=== PATIENT | female | born 1970 | race African-American/Black ===

== ENCOUNTER 2017-02-13 13:37 | Emergency (ER) | payer MEDICAID ==
[~2017-02-13] VITALS: Ht 165.1 cm; Wt 88.0 kg
[2017-02-13 14:50] LABS: HEMATOCRIT. 35.6 % (36.0-48.0); HEMOGLOBIN. 12.1 g/dL (12.0-16.0); MEAN CORPUSCULAR HEMOGLOBIN 32.9 pg (28.0-32.0); MEAN CORPUSCULAR VOLUME 96.8 fL (81.0-99.0); MEAN PLATELET VOLUME 8.3 fl (7.4-10.4); PLATELET 130 x1000/uL (130-400); RED BLOOD CELL COUNT 3.68 mill/uL (4.2-5.4); RED CELL DISTRIBUTION WIDTH 14.2 % (11.6-14.6)
[2017-02-13 15:05] LABS: CARBON DIOXIDE 32 mEq/L (21-32); CHLORIDE 103 mEq/L (98-107)
[2017-02-13] MEDS ORDERED: IBUPROFEN 600MG TABLET PO ONE (16:00)
[2017-02-13] MEDS ORDERED: TRAMADOL 50MG TABLET PO ONE (16:00)
[2017-02-13 16:42] LABS: PLATELET ESTIMATE NORMAL
[2017-02-13 17:12] VITALS: BP 139/72
== END 2017-02-13 17:31 | disposition home or self-care (01) ==
LOC: ER 14:38
DX: R06.02 Shortness of breath (principal); D72.819 Decreased white blood cell count, unspecified; Z88.1 Allergy status to other antibiotic agents; Z87.891 Personal history of nicotine dependence
CPT/HCPCS: 36415; 71020; 80048; 81025; 83880; 85025; 99285

== ENCOUNTER 2019-04-08 13:19 | Emergency (ER) | payer SELFPAY ==
[~2019-04-08] VITALS: Ht 167.6 cm; Wt 92.0 kg
[2019-04-08] MEDS ORDERED: KETOROLAC 30MG/ML VIAL IV STA (14:20)
[2019-04-08] MEDS ORDERED: SODIUM CHLORIDE 0.9% 1,000 ML IV ONE (14:20)
[2019-04-08 14:37] LABS: BASOPHILS % 1.1 % (0.0-2.0); EOSINOPHILS % 1.7 % (0.0-5.0); HEMOGLOBIN. 12.4 g/dL (12.0-16.0); LYMPHOCYTES % 48.1 % (20.0-50.0); MEAN CORPUSCULAR HEMOGLOBIN 34.3 pg (28.0-32.0); MEAN CORPUSCULAR VOLUME 99.6 fL (81.0-99.0); MEAN PLATELET VOLUME 8.4 fl (7.4-10.4); MONOCYTES % 10.4 % (2.0-8.0); NEUTROPHILS % 38.7 % (40.0-76.0); PLATELET 116 x1000/uL (130-400); RED BLOOD CELL COUNT 3.61 mill/uL (4.2-5.4); RED CELL DISTRIBUTION WIDTH 13.7 % (11.6-14.6)
[2019-04-08 14:43] LABS: CHLORIDE 110 mEq/L (98-107)
[2019-04-08 14:44] LABS: HCG SCREEN NEGATIVE
[2019-04-08 14:48] LABS: D-DIMER < 0.19 mg/L FEU (<0.50); INR 1.1; PARTIAL THROMBOPLASTIN TIME 28.1 sec (23.4-31.0); PROTHROMBIN TIME 10.8 sec (9.6-11.0)
[2019-04-08] MEDS ORDERED: POTASSIUM CHLORIDE 20MEQ TABLET SR PO ONE (15:00)
[2019-04-08] MEDS ORDERED: TRAMADOL 50MG TABLET PO ONE (16:15)
[2019-04-08 19:03] VITALS: BP 156/88
== END 2019-04-08 19:09 | disposition home or self-care (01) ==
LOC: ER 13:19
DX: R07.89 Other chest pain (principal); E87.6 Hypokalemia; M79.602 Pain in left arm; F12.10 Cannabis abuse, uncomplicated; F17.200 Nicotine dependence, unspecified, uncomplicated; Z88.1 Allergy status to other antibiotic agents; X50.1XXA Overexertion from prolonged static or awkward postures, initial encounter; Y93.89 Activity, other specified; Y92.89 Other specified places as the place of occurrence of the external cause; Y99.8 Other external cause status
CPT/HCPCS: 36415; 71045; 80053; 83880; 84484; 84703; 85025; 85379; 85610; 85730; 93005; 96374; 99284; J1885; J7030

== ENCOUNTER 2019-06-09 12:18 | Emergency (ER) | payer SELFPAY ==
[~2019-06-09] VITALS: Ht 167.6 cm; Wt 85.0 kg
[2019-06-09] MEDS ORDERED: ONDANSETRON HCL 4MG/2ML INJ IV STA (13:16)
[2019-06-09] MEDS ORDERED: KETOROLAC 30MG/ML VIAL IV STA (13:16)
[2019-06-09] MEDS ORDERED: SODIUM CHLORIDE 0.9% 1,000 ML IV ONE (13:16)
[2019-06-09 14:04] LABS: EOSINOPHILS % 1.1 % (0.0-5.0); HEMATOCRIT. 40.3 % (36.0-48.0); HEMOGLOBIN. 13.6 g/dL (12.0-16.0); MEAN CORPUSCULAR HEMOGLOBIN 33.2 pg (28.0-32.0); MEAN CORPUSCULAR VOLUME 98.4 fL (81.0-99.0); MEAN PLATELET VOLUME 8.2 fl (7.4-10.4); MONOCYTES % 9.1 % (2.0-8.0); NEUTROPHILS % 28.8 % (40.0-76.0); PLATELET 134 x1000/uL (130-400); RED CELL DISTRIBUTION WIDTH 12.4 % (11.6-14.6)
[2019-06-09 14:11] LABS: CHLORIDE 108 mEq/L (98-107)
[2019-06-09 14:16] LABS: ETHANOL BLOOD < 10 mg/dL
[2019-06-09 14:59] LABS: *AMPHETAMINES SCREEN URINE NEGATIVE (NEGATIVE); *BARBITURATES SCREEN URINE NEGATIVE (NEGATIVE)
[2019-06-09 15:01] LABS: *BENZODIAZEPINES SCREEN URINE NEGATIVE (NEGATIVE); *COCAINE SCREEN URINE NEGATIVE (NEGATIVE); METHADONE URINE SCREEN NEGATIVE (NEGATIVE); OPIATES URINE SCREEN NEGATIVE (NEGATIVE); PHENCYCLIDINE URINE SCREEN NEGATIVE (NEGATIVE)
[2019-06-09 15:02] LABS: CANNABINOID URINE SCREEN NEGATIVE (NEGATIVE)
[2019-06-09] MEDS ORDERED: POTASSIUM CHLORIDE 20MEQ TABLET SR PO ONE (16:00)
[2019-06-09 17:17] VITALS: BP 151/73
== END 2019-06-09 17:58 | disposition home or self-care (01) ==
LOC: ER 15:19
DX: R51 Headache (principal); R07.89 Other chest pain
CPT/HCPCS: 36415; 70450; 71045; 80053; 80305; 80320; 81025; 84484; 85025; 93005; 96374; 96375; 99284; J1885; J2405; J7030; G0480

== ENCOUNTER 2020-04-29 23:20 | Emergency (ER) | payer SELFPAY ==
[~2020-04-29] VITALS: Ht 172.7 cm; Wt 108.0 kg
[2020-04-30] MEDS: LORAZEPAM 2MG/ML CPJ IM PRN (01:41)
[2020-04-30 03:28] VITALS: BP 165/88
== END 2020-04-30 03:29 | disposition home or self-care (01) ==
LOC: ER 23:20
DX: F41.9 Anxiety disorder, unspecified (principal); I49.9 Cardiac arrhythmia, unspecified; Z88.1 Allergy status to other antibiotic agents
CPT/HCPCS: 93005; 96372; 99283; J2060

== ENCOUNTER 2020-06-07 10:53 | Emergency (ER) | payer MEDICAID ==
[~2020-06-07] VITALS: Ht 160 cm; Wt 82.0 kg
[2020-06-07 12:12] LABS: EOSINOPHILS % 1.3 % (0.0-5.0); HEMATOCRIT. 38.1 % (36.0-48.0); HEMOGLOBIN. 12.8 g/dL (12.0-16.0); LYMPHOCYTES % 45.4 % (20.0-50.0); MEAN CORPUSCULAR HEMOGLOBIN 32.7 pg (28.0-32.0); MEAN CORPUSCULAR VOLUME 97.2 fL (81.0-99.0); MEAN PLATELET VOLUME 8.7 fl (7.4-10.4); MONOCYTES % 8.3 % (2.0-8.0); PLATELET 139 x1000/uL (130-400); RED BLOOD CELL COUNT 3.92 mill/uL (4.2-5.4); RED CELL DISTRIBUTION WIDTH 13.7 % (11.6-14.6)
[2020-06-07 12:20] LABS: CHLORIDE 107 mEq/L (98-107)
[2020-06-07] MEDS ORDERED: ACETAMINOPHEN 325MG TABLET PO STA (12:29)
[2020-06-07] MEDS ORDERED: SODIUM CHLORIDE 0.9% 1,000 ML IV ONE (12:30)
[2020-06-07] MEDS ORDERED: PROCHLORPERAZINE 10MG/2ML VIAL IV PRN (12:30)
[2020-06-07] MEDS ORDERED: DIPHENHYDRAMINE 50MG/ML VIAL IV ONE (12:30)
[2020-06-07] MEDS ORDERED: IOHEXOL-350 100 ML BOTTLE ONE (14:11)
[2020-06-07] MEDS ORDERED: LABETALOL HCL 20MG/4ML CARPUJECT IV ONE (14:15)
[2020-06-07] MEDS ORDERED: MORPHINE SULFATE 4 MG/ML CPJ (NOT FOR IM USE) IV NR (14:30)
[2020-06-07] MEDS ORDERED: KETOROLAC 30MG/ML VIAL IV NR (14:30)
[2020-06-07] MEDS ORDERED: LABETALOL 5MG/ML SYR 20 MG/4 ML SYRINGE IV NR (14:45)
[2020-06-07] MEDS ORDERED: MAGNESIUM 2 G PREMIX 50 ML IV ONE (17:00)
[2020-06-07] MEDS ORDERED: HALOPERIDOL LACTATE 5MG/ML VIAL IM ONE (17:00)
[2020-06-07] MEDS ORDERED: ACETAMINOPHEN 325MG TABLET PO ONE (17:15)
[2020-06-07 18:05] VITALS: BP 158/78
== END 2020-06-07 18:06 | disposition home or self-care (01) ==
LOC: ER 10:53
DX: R51.9 Headache, unspecified (principal); M54.2 Cervicalgia
CPT/HCPCS: 36415; 70496; 70498; 80053; 85025; 93005; 96361; 96365; 96372; 96375; 99285; J1200; J1630; J1885; J2270; J3475; J3490; J7030; Q9967

== ENCOUNTER 2023-04-16 10:33 | Emergency (ER) | payer MEDICAID ==
[~2023-04-16] VITALS: Ht 160 cm; Wt 107.8 kg
[2023-04-16 10:47] VITALS: TEMP 98.7; O2SAT 98
[2023-04-16 11:30] VITALS: BP 159/73; PULSE 75; RESP 16
[2023-04-16] MEDS ORDERED: KETOROLAC 30MG/ML VIAL IM ONE (11:30)
[2023-04-16 11:48] LABS: BASOPHILS % 0.6 % (0.0-2.0); EOSINOPHILS % 0.2 % (0.0-5.0); HEMATOCRIT. 38.6 % (36.0-48.0); HEMOGLOBIN. 13.1 g/dL (12.0-16.0); LYMPHOCYTES % 10.7 % (20.0-50.0); MEAN CORPUSCULAR HGB CONC 33.9 g/dL (31.0-37.0); MEAN CORPUSCULAR VOLUME 94.4 fL (81.0-99.0); MONOCYTES % 5.3 % (2.0-8.0); NEUTROPHILS % 83.2 % (40.0-76.0); RED BLOOD CELL COUNT 4.09 mill/uL (4.2-5.4); RED CELL DISTRIBUTION WIDTH 13.6 % (11.6-14.6); WHITE BLOOD COUNT 7.6 x1000/uL (4.5-11.0)
[2023-04-16 12:03] LABS: CHLORIDE 106 mEq/L (98-107); INDEX HEMOLYSI 1 (1-3); INDEX ICTERIC 1 (1-4); INDEX LIPEMIC 1 (1-3); POTASSIUM 3.5 mEq/L (3.5-5.1); SODIUM 138 mEq/L (136-145)
[2023-04-16 12:10] LABS: ALANINE AMINOTRANSFERASE 22 IU/L (13-61); ALBUMIN 3.5 g/dL (3.4-5.0); ASPARTATE AMINOTRANSFERASE 15 IU/L (15-37); BILIRUBIN TOTAL 0.5 mg/dL (0.1-1.0); CALCIUM 8.6 mg/dL (8.5-10.1); CARBON DIOXIDE 33 mEq/L (21-32); CREATININE 0.9 mg/dL (0.6-1.3); GLUCOSE 122 mg/dL (70-105); PROTEIN TOTAL 7.8 g/dL (6.0-8.3); UREA NITROGEN BLOOD 12 mg/dL (7-21)
[2023-04-16 12:12] LABS: DIFFERENTIAL COMMENT 1
[2023-04-16 12:33] LABS: MEAN PLATELET VOLUME 8.3 fl (7.4-10.4); PLATELET 139 x1000/uL (130-400)
[2023-04-16] MEDS ORDERED: FAMO-135 MT (14:44)
[2023-04-16] MEDS ORDERED: ACET-2708 MT (14:44)
[2023-04-16 15:20] LABS: CLARITY URINE CLEAR (CLEAR); COLOR URINE YELLOW (YELLOW); GLUCOSE URINE NEGATIVE (NEGATIVE); KETONES URINE NEGATIVE (NEGATIVE); LEUKOCYTE ESTERASE URINE NEGATIVE (NEGATIVE); NITRITE URINE NEGATIVE (NEGATIVE); OCCULT BLOOD URINE NEGATIVE (NEGATIVE); PH URINE 8.5 (4.5-8.0); PROTEIN URINE NEGATIVE (NEGATIVE); SPECIFIC GRAVITY URINE 1.012 (1.005-1.030); UROBILINOGEN URINE 0.2 E.U./dL (0.2-1.0)
== END 2023-04-16 15:33 | disposition home or self-care (01) ==
LOC: ER 10:33
DX: R10.13 Epigastric pain (principal); Z88.8 Allergy status to other drugs, medicaments and biological substances
CPT/HCPCS: 36415; 76705; 80053; 81003; 85025; 93005; 96372; 99285

== ENCOUNTER 2024-03-08 23:51 | Emergency (ER) | payer MEDICAID ==
[~2024-03-08] VITALS: Ht 160 cm; Wt 107.0 kg
[~2024-03-08 23:51] MED LIST: ACET-2708 MT; FAMO-135 MT
[2024-03-08 23:59] VITALS: O2SAT 96
[2024-03-09 00:17] LABS: BASOPHILS % 0.7 % (0.0-2.0); EOSINOPHILS % 1.1 % (0.0-5.0); HEMATOCRIT. 39.2 % (36.0-48.0); LYMPHOCYTES % 31.9 % (20.0-50.0); MEAN CORPUSCULAR HEMOGLOBIN 31.6 pg (28.0-32.0); MEAN CORPUSCULAR HGB CONC 33.3 g/dL (31.0-37.0); MEAN CORPUSCULAR VOLUME 95.1 fL (81.0-99.0); MEAN PLATELET VOLUME 8.9 fl (7.4-10.4); MONOCYTES % 8.6 % (2.0-8.0); NEUTROPHILS % 57.7 % (40.0-76.0); PLATELET 155 x1000/uL (130-400); RED BLOOD CELL COUNT 4.12 mill/uL (4.2-5.4); RED CELL DISTRIBUTION WIDTH 14.7 % (11.6-14.6); WHITE BLOOD COUNT 5.9 x1000/uL (4.5-11.0)
[2024-03-09 00:30] LABS: CHLORIDE 106 mEq/L (98-107); POTASSIUM 3.5 mEq/L (3.5-5.1); SODIUM 141 mEq/L (136-145)
[2024-03-09 00:31] LABS: CALCIUM 9.2 mg/dL (8.7-10.4); CARBON DIOXIDE 29 mEq/L (21-32)
[2024-03-09 00:36] LABS: CREATININE 0.8 mg/dL (0.6-1.0); GLUCOSE 116 mg/dL (70-105); UREA NITROGEN BLOOD 7 mg/dL (9-23)
[2024-03-09 00:38] LABS: ALANINE AMINOTRANSFERASE 22 IU/L (10-49); ALBUMIN 4.5 g/dL (3.2-4.8); ASPARTATE AMINOTRANSFERASE 21 IU/L (<34); BILIRUBIN DIRECT 0.2 mg/dL (<=3.0); BILIRUBIN TOTAL 0.6 mg/dL (0.1-1.0); PROTEIN TOTAL 7.6 g/dL (6.0-8.3)
[2024-03-09 00:42] LABS: TROPONIN I HIGH SENSITIVITY < 4 ng/L (3.0-34)
[2024-03-09 01:02] LABS: PROTHROMBIN TIME 10.9 sec (9.6-11.0)
[2024-03-09 01:04] LABS: HCG SCREEN NEGATIVE
[2024-03-09] MEDS: ONDANSETRON HCL 4MG/2ML INJ IV STA (01:33)
[2024-03-09] MEDS: SODIUM CHLORIDE 0.9% 1,000 ML IV ONE (01:34)
[2024-03-09] MEDS: MORPHINE SULFATE 4 MG/ML INJ (FOR IV/IM USE) IV ONE (01:35)
[2024-03-09 01:47] LABS: CLARITY URINE CLOUDY (CLEAR); COLOR URINE YELLOW (YELLOW); GLUCOSE URINE NEGATIVE (NEGATIVE); KETONES URINE 1+ (NEGATIVE); LEUKOCYTE ESTERASE URINE NEGATIVE (NEGATIVE); NITRITE URINE NEGATIVE (NEGATIVE); OCCULT BLOOD URINE NEGATIVE (NEGATIVE); PH URINE 7.5 (4.5-8.0); PROTEIN URINE NEGATIVE (NEGATIVE); SPECIFIC GRAVITY URINE 1.013 (1.005-1.030); UROBILINOGEN URINE 0.2 E.U./dL (0.2-1.0)
[2024-03-09 02:55] LABS: SQUAMOUS EPITHELIAL CELL URINE FEW /lpf (RARE/1+)
[2024-03-09 03:12] LABS: RBC URINE 0-2 /hpf (0-2); WBC URINE 0-2 /hpf (0-2)
[2024-03-09 03:13] LABS: BACTERIA URINE NONE SEEN
[2024-03-09 09:20] VITALS: BP 136/60; PULSE 70; RESP 16; TEMP 98
== END 2024-03-09 09:46 | disposition left against medical advice (07) ==
LOC: ER 23:51 → EDBEDREQ 03-09 02:52 → EDBEDREQTM 03-09 02:52 → CANBEDREQ 03-09 09:46 → ER 03-09 09:46
DX: R10.13 Epigastric pain (principal); R11.2 Nausea with vomiting, unspecified
CPT/HCPCS: 99285; 96374; 96361; 96375; 80076; 80048; 81003; 84703; 83690; 85025; 85610; 84484; 36415; J2405; J2270; J7030

== ENCOUNTER 2025-08-24 21:30 | Emergency (ER) | payer MEDICAID ==
[~2025-08-24] VITALS: Ht 160 cm; Wt 111.0 kg
[2025-08-24 21:41] VITALS: O2SAT 100
[2025-08-24 21:54] VITALS: BP 156/82; PULSE 105; RESP 22; TEMP 36.9; O2SAT 100
[2025-08-24] MEDS ORDERED: CEPH500C2 MT (22:16)
[2025-08-24] MEDS ORDERED: IBUP-2030 MT (22:16)
[2025-08-24] MEDS ORDERED: DEX4 MT (22:16)
[2025-08-24] MEDS: HYDROCODONE/ACETAMINOPHEN 5/325MG TABLET PO ONE (22:31)
[2025-08-24] MEDS: KETOROLAC 30MG/ML VIAL IM ONE (22:31)
== END 2025-08-24 22:37 | disposition home or self-care (01) ==
LOC: ER 21:30
DX: K08.89 Other specified disorders of teeth and supporting structures (principal); Z79.899 Other long term (current) drug therapy; Z88.1 Allergy status to other antibiotic agents
CPT/HCPCS: 99283; 96372; J1885